=== PATIENT | female | born 1975 | race African-American/Black ===

== ENCOUNTER 2019-07-26 23:55 | Observation (INO) | payer OTHER ==
[2019-07-27 01:11] LABS: Troponin I 0.031 ng/mL (< 0.028)
[2019-07-27] MEDS ORDERED: HYDROcodone/Acetaminophen 5/325 mg Tablet PO PRN ×2 (01:44)
[2019-07-27] MEDS ORDERED: Senokot S 8.6-50 MG TAB PO PRN (01:44)
[2019-07-27] MEDS ORDERED: Acetaminophen 325 MG TAB PO PRN (01:44)
[2019-07-27] MEDS: Nitroglycerin 0.4 MG TAB (25 Tab Bottle) SL PRN ×2 (03:15→06:47)
--- NOTE | 2019-07-27 03:37 | HP ---
PRIMARY CARE PHYSICIAN: Dr. Gusman. CHIEF COMPLAINT: Chest pain. HISTORY OF PRESENT ILLNESS: Ms. Sosa is a 43-year-old female, past medical history of hypertension, anemia, and heart murmur, who went to the emergency room in [place] today for complaints of chest pain. She reports that it started Sunday. She noted that it woke her up and then she noted sharp chest pain, substernal. She reports that her chest felt sore later the morning when she got up and reports the pain has continued through Sunday. Reports mild shortness of breath with walking that has been present for several days. Denies any nausea or vomiting. No diaphoresis. No radiation of the pain. Pain is worse with deep breaths. No fever. Mild cough that is nonproductive. She reports that she had similar pain six months ago, was evaluated for, but reports nothing came of it. She is not taking any medications for this. Does have a history of a heart murmur. Chest x-ray in the emergency room shows no acute intrathoracic abnormalities. She did have two troponin drawn that were in the indeterminate range. Hence, she was sent over to [facility] for admission for chest pain rule out. She was also found to have a potassium of 3.2. Records indicate that she did have a cardiac cath in [address] Hernandez after she had an abnormal stress test with an ST depression with exertion. At that time in 2016, she had a left main normal, left anterior descending normal, circumflex normal, right coronary and right dominant normal vessel, somewhat tortuous, but normal. At that time. Ejection fraction was 60%. Dr. Hernandez indicated that he thought she had normal coronary arteries at that time. We will admit the patient to the observation unit for further ACS rule out. REVIEW OF SYSTEMS: Patient reports chest pain. Reports shortness of breath with exertion for 4 or 5 days. Denies any fever. Reports some mild cough. Denies any recent travel. All systems are reviewed and are negative unless mentioned in the HPI. ALLERGIES: NONE. HOME MEDICATIONS: Still need to be were reconciled. 1. Ferrous sulfate 325 mg once a day. 2. Amlodipine 10 mg p.o. once a day. PHYSICAL EXAMINATION: VITAL SIGNS: 134/77, pulse is 80, respirations are 20, temperature is 98.4, and pO2 sats are 97% on room air. CONSTITUTIONAL: Patient is nontoxic appearing. She is alert and oriented to person, place, and time. HEENT: Head is atraumatic and normocephalic. Eyes; pupils equal, round, and reactive to light. Eyelids are normal to inspection. ENT; mouth exam is normal. Mucous membranes are moist. NECK: Normal range of motion. Trachea is midline. RESPIRATORY/CHEST: Chest movement is symmetrical. Breath sounds are clear. CARDIOVASCULAR: Regular heart rate and rhythm. Faint heart murmur is auscultated. ABDOMEN: Nontender. Bowel sounds are heard. Back, normal range of motion. No tenderness. EXTREMITIES: Upper extremity normal range of motion. Motor strength is normal. Radial pulses are normal. Lower extremity normal range of motion. Motor strength is normal. Pedal pulses are normal. NEUROLOGIC: Patient is alert, alert and oriented to person, place, and time. Speech is normal. SKIN: Warm and dry, normal in color. PSYCH: Normal affect. She is alert and oriented to person, place, and time. LABORATORY FINDINGS: EKG in the emergency room shows normal sinus rhythm, beats per minute 75. Conduction normal. ST segments are normal. LABORATORY DATA: White blood cell count 6.4, hemoglobin 11.9, hematocrit 41.4, and platelet count 235. Chemistry; 142, potassium 3.2, creatinine 0.88, and glucose 122. PLAN/ASSESSMENT: 1. Chest pain, with elevated troponin. We will trend x3. Stress test ordered for in the morning. We will check fasting lipid, TSH. 2. History of hypertension. We will restart home medications when reconciled. 3. Deep venous thrombosis and gastrointestinal prophylaxis started. 4. Hospital course dependent on clinical findings. Job ID: [id number]
[2019-07-27 03:46] LABS: #Eosinphils 0.2 thou/uL (0.0-0.7); #Lymphocytes 2.5 thou/uL (1.20-3.40); #Monocytes 0.4 thou/uL (0.11-0.59); #Neutrophils 2.8 thou/uL (1.40-6.50); %Basophils 0.3 % (0.0-1.0); %Eosinophils 2.6 % (0.0-10.0); %Lymphocytes 42.6 % (21.0-51.0); %Monocytes 6.6 % (0.0-10.0); Hemoglobin 11.8 g/dL (12.0-16.0); Mean Corpuscular HGB CONC 32.6 g/dL (32.0-36.0); Mean Corpuscular Hemoglobin 25.5 pg (27.0-31.0); Mean Platelet Volume 10.6 fL (7.4-10.4); Platelet Count 197 thou/uL (130-400); RBC Distribution Width 14.5 % (11.5-14.5); Red Blood Cell (RBC) Count 4.65 mill/uL (4.20-5.40); White Blood Cell (WBC) Count 5.9 thou/uL (4.8-10.8)
[2019-07-27 04:03] VITALS: BMI 35.4
[2019-07-27 04:09] LABS: Anion Gap 16 mmol/L (10-20); BUN (Urea Nitrogen) 14 mg/dL (7.0-18.7); Calc. Creatinine Clearance 150 mL/min (70-130); Calcium 9.4 mg/dL (7.8-10.44); Carbon Dioxide 23 mmol/L (22-29); Cardiac Risk 4.6 (Less than 4.5); Chloride 105 mmol/L (98-107); Cholesterol 197 mg/dl (< 200 Desired); Estimated GFR-MDRD Greater than 90; Glucose 165 mg/dL (70-105); HDL Cholesterol 43 mg/dL (>60 Neg Risk); LDL Cholesterol, Calculated 87 mg/dL; Potassium 3.2 mmol/L (3.5-5.1); Sodium 141 mmol/L (136-145); Triglycerides 333 mg/dL (Less than 150)
[2019-07-27 04:13] LABS: Troponin I 0.028 ng/mL (< 0.028)
[2019-07-27] MEDS ORDERED: Potassium Chloride 20 MEQ TAB PO SCH (08:00)
[2019-07-27] MEDS ORDERED: FLU VACC QS2019-20(6MOS UP)/PF 60 MCG/0.5 ML SYRINGE IM ONE (09:00)
[2019-07-27] MEDS ORDERED: Famotidine 20 MG TAB PO SCH (09:00)
--- NOTE | 2019-07-27 14:54 | NM ---
EXAM: NM Cardiac Stress W EF WF PROVIDED CLINICAL HISTORY: Chest pain and shortness of breath with exertion. Heart murmur. COMPARISON: 11/17/2015 FINDINGS: There is normal uptake and distribution of radiotracer seen throughout the left ventricular myocardiu m on the stress acquisition. No reversible defect is identified between the stress and resting acquisitions. Quantitative analysis also shows no significant reversible defect. The gated images dem onstrate normal ventricular wall motion and wall thickening. Calculated left ventricular ejection fraction of 70% was obtained. The calculated left ventricular ejection fraction on prior study in 201 6 was 71%. IMPRESSION: 1. Normal myocardial perfusion study without evidence of a reversible defect seen to suggest ischemia . 2. Normal LVEF of 70 %.
[2019-07-27 15:41] VITALS: BP 133/74; TEMP 97.8
--- NOTE | 2019-07-28 07:34 | DIS ---
DATE OF ADMISSION: 07/27/2019 DATE OF DISCHARGE: 07/27/2019 DISCHARGE DISPOSITION: Home. FOLLOWUP: Follow up with primary care physician, Dr. Gusman in 1 week. Basic metabolic profile in 1 week is recommended. Primary care physician advised to follow. The patient was seen and examined on the day of discharge. Denies any new complaints. No chest pain, shortness of breath, palpitations reported. BRIEF HOSPITAL COURSE: The patient is a 43-year-old female with hypertension, presented to the emergency room with chest discomfort. Please refer to the history and physical dictated earlier today by Skye Riddle for further details. The patient was admitted to the hospital with a diagnosis of chest discomfort, rule out acute coronary syndrome. Initial troponin was 0.031 with a repeat troponin of 0.028. She underwent a Cardiolite stress test that was negative for reversible ischemia. Ejection fraction was 70% without any wall motion abnormality. She also had hypokalemia with potassium of 3.2, which was replaced. Her magnesium was normal at 1.9. Lifestyle modification was emphasized. Her lipid profile showed triglyceride of 333 with cholesterol of 197, LDL of 87, with HDL of 43. TSH was 1.1. No changes in her medications were made. She was advised to take her potassium tablets twice daily for next 2 days and to resume the home dose. She appears stable for discharge. She will benefit from a statin as outpatient if lifestyle modification fails. FINAL DIAGNOSES: 1. Chest discomfort, acute coronary syndrome ruled out. 2. Hypertension. 3. Hypokalemia. 4. Obesity with a BMI of 35.4. The patient understands the above plan of care. Job ID: [id number]
[2019-07-28] MEDS ORDERED: Potassium Chloride 20 MEQ TAB PO SCH (08:00)
== END 2019-07-27 16:43 | disposition home or self-care (01) ==
LOC: ERS 23:55 → 2SW 07-27 00:32
PROVIDERS: ADMIT Internal Medicine; ATTEND Internal Medicine
DX: R07.89 Other chest pain (principal); I10 Essential (primary) hypertension; D64.9 Anemia, unspecified; E87.6 Hypokalemia; E66.9 Obesity, unspecified; Z68.35 Body mass index [BMI] 35.0-35.9, adult; Z79.899 Other long term (current) drug therapy
CPT/HCPCS: 36415; 78452; 80048; 80061; 83735; 84443; 84484; 85025; 93005; 93017; A9500; G0378; J0153